=== PATIENT | male | born 1970 | race Hispanic/Latino ===

== ENCOUNTER 2018-12-02 08:24 | Day surgery (SDC) | payer BC ==
[2018-11-28 11:05] VITALS: BMI 35.6
[2018-12-02] MEDS ORDERED: Simethicone 40 mg/0.6 ml Liquid (30 ml) ONE (08:54)
[2018-12-02] MEDS ORDERED: Propofol 10 mg/ml Inj (20 ML) ONE ×2 (08:55→09:15)
[2018-12-02] MEDS ORDERED: Sodium Chloride 0.9% 1,000 ML IV SCH (09:30)
[2018-12-02 09:38] VITALS: TEMP 98
[2018-12-02 10:00] VITALS: O2SAT 95
[2018-12-02 10:39] VITALS: BP 143/79; PULSE 80; RESP 16
== END 2018-12-02 10:42 | disposition home or self-care (01) ==
LOC: ENDO 08:24
PROVIDERS: ATTEND Internal Medicine Gastroenterology
DX: K21.9 Gastro-esophageal reflux disease without esophagitis (principal); K29.50 Unspecified chronic gastritis without bleeding; R10.13 Epigastric pain; Q23.1 Congenital insufficiency of aortic valve
CPT/HCPCS: 43239; 88305; 88312; 88342; J2704; J7030; J7040